=== PATIENT | female | born 1960 | race Caucasian/White ===

== ENCOUNTER 2021-01-02 14:19 | Inpatient (IN) | payer MEDICARE ==
[~2021-01-02] VITALS: Ht 162.6 cm; Wt 107.0 kg
[2021-01-02 14:52] LABS: BASOPHILS 0.1 % (0-2); EOSINOPHILS 0 % (0-7); HEMOGLOBIN 8.1 g/dL (12-16); IMMATURE GRANULOCYTES 0.5 % (0-5); LYMPHOCYTE ABS# 1.36 10x3/uL (1.18-3.74); LYMPHOCYTES 9.2 % (15-50); MCH 33.5 pg (26.0-34.0); MCHC 32.4 g/dL (31.0-37.0); MCV 103.3 fL (80.0-100.0); MEAN PLATELET VOLUME 10.2 fL (7.4-10.4); MONOCYTES 0.7 % (2-11); NEUTROPHIL ABS# 13.25 10x3/uL (1.56-6.13); NEUTROPHILS 89.5 % (40-80); PLATELET COUNT 151 10x3/uL (130-400); RBC 2.42 10x6/uL (4.00-5.40); RDW 22.3 % (11.5-14.5); WBC 14.8 10x3/uL (4.8-10.8)
[2021-01-02 15:01] LABS: APTT 28.1 SECONDS (22.8-39.4); INR 1.37 (0.85-1.17); PROTIME 15.6 SECONDS (11.6-15.0)
[2021-01-02 15:10] LABS: CALC OSMOLALITY 286 mosm/kg (275-300); CALCIUM 8.4 mg/dL (8.5-10.1); CARBON DIOXIDE 26.7 mmol/L (21.0-32.0); CHLORIDE - SERUM 103 mmol/L (98-107); GLUCOSE 106 mg/dL (74-106); POTASSIUM - SERUM 4.3 mmol/L (3.5-5.1); SODIUM 137 mmol/L (136-145); UREA NITROGEN 50 mg/dL (7-18); eGFR NON AFRICAN AMERICAN 60 mL/min (90-120)
[2021-01-02 15:16] LABS: ALBUMIN 2.3 g/dL (3.4-5.0); ALKALINE PHOSPHATASE 91 U/L (30-120); ALT (SGPT) 49 U/L (10-68); CKMB 0.4 U/L (0.0-3.6); CREATINE KINASE 15 UL (21-215); PROTEIN - SERUM 5.5 g/dL (6.4-8.2); TROPONIN-I < 0.017 ng/mL (0.000-0.060)
[2021-01-02 15:27] LABS: D-DIMER-QUANTITATIVE 2.5 ug/mLFEU (0.20-0.54)
[2021-01-02 18:15] VITALS: BP 81/57
[2021-01-02 18:45] VITALS: BP 88/45
[2021-01-02 19:15] VITALS: BP 81/47
--- NOTE | 2021-01-02 22:08 | NUR ---
RESTING. NO DISTRESS. SR UP X 3. CALL LIGHT IN REACH.
[2021-01-03] VITALS (7 sets, daily range): BP systolic 93–109; BP diastolic 42–64; Ht 162.6 cm; Wt 107.0 kg
[2021-01-03 08:20] LABS: BASOPHILS 0.1 % (0-2); EOSINOPHILS 0 % (0-7); HEMATOCRIT 21.3 % (36.0-48.0); IMMATURE GRANULOCYTES 0.1 % (0-5); LYMPHOCYTE ABS# 0.89 10x3/uL (1.18-3.74); LYMPHOCYTES 9.8 % (15-50); MCHC 32.9 g/dL (31.0-37.0); MCV 103.4 fL (80.0-100.0); RBC 2.06 10x6/uL (4.00-5.40); RDW 21.6 % (11.5-14.5)
[2021-01-03 08:38] LABS: ALBUMIN 1.9 g/dL (3.4-5.0); ALKALINE PHOSPHATASE 80 U/L (30-120); CALC OSMOLALITY 288 mosm/kg (275-300); CALCIUM 7.7 mg/dL (8.5-10.1); CARBON DIOXIDE 28.4 mmol/L (21.0-32.0); CHLORIDE - SERUM 105 mmol/L (98-107); CKMB 0.3 U/L (0.0-3.6); CREATINE KINASE 13 UL (21-215); CREATININE - SERUM 1.1 mg/dL (0.6-1.3); GLUCOSE 111 mg/dL (74-106); MAGNESIUM - SERUM 1.9 mg/dL (1.8-2.4); PLATELET COUNT 113 10x3/uL (130-400); POTASSIUM - SERUM 3.9 mmol/L (3.5-5.1); SODIUM 138 mmol/L (136-145); TROPONIN-I < 0.017 ng/mL (0.000-0.060); UREA NITROGEN 47 mg/dL (7-18); WBC 9.1 10x3/uL (4.8-10.8); eGFR NON AFRICAN AMERICAN 54 mL/min (90-120)
[2021-01-03 08:40] LABS: ALT (SGPT) 34 U/L (10-68)
--- NOTE | 2021-01-03 09:17 | NUR ---
PT ALERTA ND CONFUSED, LYING IN BED. PT WOKE WHEN ENTERED ROOM, PT COMPLAINED OF BEING HUNGRY, DIET CAHNGED PER MD ORDER, CALLED DIETARY FOR TRAY. SPOKE WITH BROTHER (ADRIANO) FOR CONSENT FOR BLOOD, OBTAINED CONSENT. CL IN REACH, SRX2.
--- NOTE | 2021-01-03 10:12 | NUR ---
PT EATING BREAFKAST WITH HELP FROM TECH. RECIEVING FIRST UNIT OF BLOOD, TOLERATING WELL.
[2021-01-03 11:21] LABS: % SATURATION 96 % (15-55); IRON 176 ug/dl (35-150); TOTAL IRON BIND CAPACITY 182 ug/dl (260-445)
[2021-01-03 11:22] LABS: UNSAT IRON BIND CAPACITY 6 ug/dl (150-375)
--- NOTE | 2021-01-03 11:26 | NUR ---
I have reviewed this patient and I concur with the Shift Assessment completed by the Licensed Practical Nurse today this shift.
[2021-01-03 11:43] LABS: FERRITIN 849 ng/mL (3-244)
--- NOTE | 2021-01-03 14:17 | NUR ---
PT RESTING COMFORTABLY WAKES EASILY TO MODERATE VERBAL STIMULI. TOLERATED 2 UNITS OF BLOOD WITHOUT NOTED DIFFICULTY. PT STATES SHE FEELS TIRED AND HER BACK HURTS SOMETIMES. NO FAMILY AT BEDSIDE. CL IN REACH, SRX2.
--- NOTE | 2021-01-03 19:40 | NUR ---
INITIAL ROUNDS COMPLETED. PT RESTING WITH EYES CLOSED. RESP EVEN AND REGULAR. SR UP X2, CALL LIGHT WITHIN REACH.
--- NOTE | 2021-01-03 22:15 | NUR ---
ASSESSMENT COMPLETED AT 2010 HRS. PT INCONTINENT OF URINE. INCONTINENT CARE DONE. PT ALERT, ORIENTED TO PERSON ONLY. LAIRD. PALPABLE PERIPHERAL PULSES. O2 4LNC. SR PER CM HR 73. LUNGS DIMINISHED IN BASES BILAT. NS TO P PORT AT 10CC/HR. IV PATENT. ICE CREAM GIVEN PER REQUEST. PT ASSISTED WITH EATING PER MICHAELLE LAMA. PT CURRENTLY RESTING WITH EYES CLOSED. RESP EVEN AND REGULAR. SR UP X2,CALL LIGHT WITHIN REACH.
--- NOTE | 2021-01-03 23:57 | NUR ---
PT AWAKE; DENIES ANY SOB OR NEEDS, SR UP X2, CALL LIGHT WITHIN REACH.
[2021-01-04] VITALS (7 sets, daily range): BP systolic 83–106; BP diastolic 46–64
--- NOTE | 2021-01-04 02:11 | NUR ---
PT RESTING WITH EYES CLOSED. RESP EVEN AND REGULAR. SR UP X3, CALL LIGHT WITHIN REACH.
--- NOTE | 2021-01-04 04:38 | NUR ---
PT INCONTINENT OF URINE. INCONTINENT CARE DONE. PT TOLERATED ACTIVITY WELL. SR UP X3, CALL LIGHT WITHIN REACH.
--- NOTE | 2021-01-04 06:32 | NUR ---
VSS THROUGHOUT NIGHT. SR PER CM. PT RESTED WELL DURING SHIFT. NEED MET; WILL CONTINUE TO MONITOR.
[2021-01-04 06:55] LABS: BASOPHILS 0.1 % (0-2); EOSINOPHILS 0.1 % (0-7); IMMATURE GRANULOCYTES 0.6 % (0-5); LYMPHOCYTE ABS# 1.07 10x3/uL (1.18-3.74); LYMPHOCYTES 15.7 % (15-50); MCH 32.4 pg (26.0-34.0); MONOCYTES 1.3 % (2-11); NEUTROPHILS 82.2 % (40-80); RDW 18.9 % (11.5-14.5)
[2021-01-04 06:56] LABS: HEMATOCRIT 28.5 % (36.0-48.0); HEMOGLOBIN 9.7 g/dL (12-16); MCV 95.3 fL (80.0-100.0); PLATELET COUNT 70 10x3/uL (130-400); RBC 2.99 10x6/uL (4.00-5.40); WBC 6.8 10x3/uL (4.8-10.8)
[2021-01-04 07:15] LABS: PLATELET ESTIMATE DECREASED
--- NOTE | 2021-01-04 10:47 | NUR ---
PT AWAKE AND ORIENTED, LYING IN BED RESTING. WOKE EASILY TO VERBAL STIMULI. PT FED BREAKFAST BY TECH. CLEANED AND DRIED PT, CHANGED LINNENS. PT HAD LARGE SEMI HARD BROWN STOOOL IN BED VEGAS. STATES THAT SHE HAS INTERNAL HEMEROIDS AND THE BMS ARE GIVNG HER PAIN. APPLIED PUREWICK WITH BRIEF OVER THE TOP TO HOLD PUREWICK IN PLACE. NO COMPLAINT SOR CONCERNS AT THIS TIME. CL IN REACH, SRX2, BED ALARM ON AND ACTIVE.
[2021-01-04 12:08] LABS: D-DIMER-QUANTITATIVE 2.59 ug/mLFEU (0.20-0.54)
--- NOTE | 2021-01-04 15:53 | NUR ---
I have reviewed this patient and I concur with the Shift Assessment completed by the Licensed Practical Nurse today this shift.
--- NOTE | 2021-01-04 21:45 | NUR ---
INITIAL ROOUONDS COMPLETED AT 1910 HRS. PT RESTING WITH EYES CLOSED. RESP EVEN AND REGULAR. ASSESSMENT COMPLETED AT 1999 HRS. VSS. SR PER CM HR 93. O2 3LNC. PT ALERT AND ORIENTED TO PERSON AND PLACE. REORIENTED TO TIME AND SITUATION. IV TO L IMPLANED PORT WITH NS AT 75CC/HR. IV PATENT.LUNGS DIMINISHED IN BASES BILAT WITH INTERMITTENT COUGH NOTED. LAIRD. PALPABLE PERIPHERAL PULSES. PT INCONTINENT OF URINE WITH PUREWICK IN USE. INCONTINET CARE DONE. PT COULD NOT ASSIST IN CARE; UNABLE TO GRAB SIDE RAILS AND PULL SELF OVER. PT REPOSITONED IN BED AND PUREWICK READJUSTED. PT CURRETNLY RESTING WITH EYES CLOSED. RESP EVEN AND REGULAR. SR UP X2, CALL LIGHT WITHIN REACH.
--- NOTE | 2021-01-05 01:31 | NUR ---
PT RESTING WITH EYES CLOSED. RESP EVEN AND REGULAR. SR UP X2, CALL LIGHT WITHIN REACH.
--- NOTE | 2021-01-05 02:35 | NUR ---
PT RESTING WITH EYES CLOSED. RESP EVEN AND REGULAR. SR UP X2,CALL LIGHT WITHIN REACH.
--- NOTE | 2021-01-05 04:29 | NUR ---
PT RESTING WITH EYES CLOSED. RESP EVEN AND REGULAR. SRU P X2, CALL LIGHT WITHIN REACH.
--- NOTE | 2021-01-05 05:40 | NUR ---
PT INCONTINENT OF URINE. INCONTINENT CARE DONE. NORCO 5/325 PO GIVENFOR C/O BACK PAIN. REPOSITIONED IN BED FOR COMFORT. SR UP X2, CALL LIGHT WITHIN REACH.
--- NOTE | 2021-01-05 06:20 | NUR ---
VSS. PT RESTED WELL DURING SHIFT. NEEDS MET; WILL CONTINUE TO MONITOR.
[2021-01-05 08:44] VITALS: BP 97/34
--- NOTE | 2021-01-05 10:24 | NUR ---
PT AWAKE AND ORIENTED, LYING IN BED. FED BREAKFAST BY NURSE. TOOK ALL MEDICATIONS WHOLE WITHOUT COMPLICATIONS NOTED OR REPORTED. PT C/O PAIN, ADMINISTERED PRN PAIN MEDIATION. CLEAN AND DRY AT THIS TIME. CL IN REACH, SRX2, BED ALARM ON AND ACTIVE.
[2021-01-05 13:36] VITALS: BP 100/61
--- NOTE | 2021-01-05 13:39 | NUR ---
CALLED [facility] AND ASKED THEM TO FAX OVER PTS CURRENT MEDICATION LIST.
[2021-01-05] MEDS ORDERED: ZYRTEC10 MG PO (14:22)
[2021-01-05] MEDS ORDERED: DEPAKOTE ER250 MG PO (14:23)
[2021-01-05] MEDS ORDERED: TOPROL XL50 MG PO (14:23)
[2021-01-05] MEDS ORDERED: SYNTHROID50 MCG PO (14:24)
[2021-01-05] MEDS ORDERED: BACLOFEN10 MG PO (14:25)
[2021-01-05] MEDS ORDERED: CHRONULAC30 ML PO (14:25)
[2021-01-05] MEDS ORDERED: MULTI-DAY VITAM1 TAB PO (14:25)
[2021-01-05] MEDS ORDERED: COLACE100 MG PO (14:26)
[2021-01-05] MEDS ORDERED: PROPRANOLOL HCL10 MG PO (14:28)
[2021-01-05] MEDS ORDERED: ULTRAM50 MG PO (14:29)
[2021-01-05] MEDS ORDERED: IBUPROFEN800 MG PO (14:30)
[2021-01-05] MEDS ORDERED: HYDROCODON-ACE1 EA10 PO (14:31)
[2021-01-05] MEDS ORDERED: PAXIL20 MG PO (14:32)
[2021-01-05 15:22] LABS: BASOPHILS 0.5 % (0-2); EOSINOPHILS 0 % (0-7); HEMATOCRIT 30.3 % (36.0-48.0); HEMOGLOBIN 10.2 g/dL (12-16); IMMATURE GRANULOCYTES 0.3 % (0-5); LYMPHOCYTE ABS# 1.09 10x3/uL (1.18-3.74); LYMPHOCYTES 18.9 % (15-50); MCH 32.4 pg (26.0-34.0); MCHC 33.7 g/dL (31.0-37.0); MCV 96.2 fL (80.0-100.0); MEAN PLATELET VOLUME 10.5 fL (7.4-10.4); MONOCYTES 1.2 % (2-11); NEUTROPHIL ABS# 4.56 10x3/uL (1.56-6.13); NEUTROPHILS 79.1 % (40-80); RBC 3.15 10x6/uL (4.00-5.40); RDW 18.3 % (11.5-14.5); WBC 5.8 10x3/uL (4.8-10.8)
[2021-01-05] MEDS ORDERED: PREPARATION H O57 GM TOPICAL (15:32)
[2021-01-05] MEDS ORDERED: FISH OIL 1,0001 CA1 PO (15:34)
[2021-01-05] MEDS ORDERED: ACETAMINOPHEN500 M1 PO (15:34)
[2021-01-05] MEDS ORDERED: VITAMIN D325 MC1 PO (15:37)
[2021-01-05 15:48] LABS: PLATELET COUNT 34 10x3/uL (130-400)
[2021-01-05 15:54] LABS: ALBUMIN 1.8 g/dL (3.4-5.0); ANION GAP 11.3 mmol/L (8-16); BILIRUBIN - TOTAL 1.33 mg/dL (0.2-1.3); CALCIUM 7.7 mg/dL (8.5-10.1); CARBON DIOXIDE 28.7 mmol/L (21.0-32.0); CREATININE - SERUM 0.9 mg/dL (0.6-1.3); PROTEIN - SERUM 4.5 g/dL (6.4-8.2)
[2021-01-05 17:12] LABS: PLATELET ESTIMATE DECREASED
--- NOTE | 2021-01-05 18:03 | NUR ---
I have reviewed this patient and I concur with the Shift Assessment completed by the Licensed Practical Nurse today this shift.
[2021-01-05 18:25] LABS: BILIRUBIN NEGATIVE (NEGATIVE); KETONE NEGATIVE (NEGATIVE); NITRITE NEGATIVE (NEGATIVE)
--- NOTE | 2021-01-05 19:00 | NUR ---
REPORT GIVEN BY DAY SHIFT NURSE.
[2021-01-05 19:54] VITALS: BP 104/62
--- NOTE | 2021-01-05 20:00 | NUR ---
PT IS HERE WITH PNEUOMONIA AND ANEMIA. SHE IS CONFUSED. IF SHE KNOWS YOU'RE IN THE ROOM SHE TALKS NONSTOP. SHE HAS A LEFT INFUSAPORT INFUSING NS AT 50 ML/HR. SHE IS ON 3L O2 VIA NASAL CANNULA WHEN SHE KEEPS IT ON. SHE IS INCONTINENT OF BLADDER AND BOWEL. SHE HAS AN EGG CRATE MATTRESS. SHE TELLS ME THAT YAAKOV IS IN THE ROOM AND HE IS LAYING ON TOP OF HER IN BED. PT TAKES HER MEDS WHOLE ONE AT A TIME. I'D BREAK THE LARGER PILLS IN HALF.SHE HAS A PURWICK THAT NEEDS TO BE CHANGED. WILL BE FOLLOWING HER ALL SHIFT.
[2021-01-05 23:50] VITALS: BP 107/68
--- NOTE | 2021-01-06 03:00 | NUR ---
PT HAS BEEN CLEANED UP TWICE TONIGHT FROM HER PERWICK LEAKING. SHE WILL NOT KEEP HER LEGS TOGETHER FOR A PURWICK TO STAY IN PLACE. SHE STATES YAAKOV IS STILL ON TOP OF HER EVEN THOUGH WE TELL HER THERE IS NO ONE HERE.
[2021-01-06 04:13] VITALS: BP 92/59
--- NOTE | 2021-01-06 08:00 | NUR ---
LAYING IN BED RESTING COMFORTABLE, ASSISTED PT WITH BREAKFAST, TOLERATED WELL, NO NEEDS VOICED AT THIS TIME, CALL LIGHT IN REACH, WILL MONITOR
[2021-01-06 08:17] VITALS: BP 101/67
[2021-01-06 09:37] LABS: BASOPHILS 0.4 % (0-2); EOSINOPHILS 0 % (0-7); HEMOGLOBIN 8.6 g/dL (12-16); IMMATURE GRANULOCYTES 0.2 % (0-5); LYMPHOCYTE ABS# 1.07 10x3/uL (1.18-3.74); LYMPHOCYTES 23.4 % (15-50); MCH 31.6 pg (26.0-34.0); MCHC 33.1 g/dL (31.0-37.0); MCV 95.6 fL (80.0-100.0); MEAN PLATELET VOLUME 11.1 fL (7.4-10.4); MONOCYTES 2.2 % (2-11); NEUTROPHIL ABS# 3.38 10x3/uL (1.56-6.13); NEUTROPHILS 73.8 % (40-80); RBC 2.72 10x6/uL (4.00-5.40); RDW 17.4 % (11.5-14.5); WBC 4.6 10x3/uL (4.8-10.8)
[2021-01-06 09:40] LABS: ALBUMIN 1.7 g/dL (3.4-5.0); ALKALINE PHOSPHATASE 98 U/L (30-120); ALT (SGPT) 33 U/L (10-68); BILIRUBIN - TOTAL 1.46 mg/dL (0.2-1.3); CALC OSMOLALITY 274 mosm/kg (275-300); CALCIUM 7.5 mg/dL (8.5-10.1); CARBON DIOXIDE 25.2 mmol/L (21.0-32.0); CHLORIDE - SERUM 103 mmol/L (98-107); CREATININE - SERUM 0.8 mg/dL (0.6-1.3); GLUCOSE 84 mg/dL (74-106); POTASSIUM - SERUM 3.3 mmol/L (3.5-5.1); PROTEIN - SERUM 4.3 g/dL (6.4-8.2); SODIUM 137 mmol/L (136-145); eGFR NON AFRICAN AMERICAN 77 mL/min (90-120)
[2021-01-06 09:41] LABS: UREA NITROGEN 19 mg/dL (7-18)
[2021-01-06 09:58] LABS: PLATELET COUNT 22 10x3/uL (130-400)
--- NOTE | 2021-01-06 10:10 | NUR ---
DR ZHU NOTIFIED OF CRITICAL PLT 22, NO NEW ORDERS
--- NOTE | 2021-01-06 12:30 | NUR ---
Nutrition Follow-up: Poor/fair PO intake reported. ST following. Noted covid testing ordered. Diet: Regular, Mech Soft & Ground Meat PO intake: 25-50% No new wt; last wt: 236# (01/03) Labs noted: K+ 3.4, Ca 7.5, Alb 1.7 Meds noted: Raegan, NS @ 100, electrolyte protocol -Encourage PO intake and honor food preferences within diet restrictions. -+Ensure with meals. -Pt may benefit from an appetite stimulant. -Need new wt. -RD will follow up within 3 days.
--- NOTE | 2021-01-06 12:35 | NUR ---
COVID TEST SENT TO THE LAB AT THIS TIME
[2021-01-06 12:54] VITALS: BP 106/65
[2021-01-06 13:15] LABS: SARS-CoV-2 ANTIGEN NEGATIVE- SARS-COV-2 (NEGATIVE)
[2021-01-06 13:53] LABS: D-DIMER-QUANTITATIVE 2.31 ug/mLFEU (0.20-0.54)
[2021-01-06 15:42] VITALS: BP 108/69
--- NOTE | 2021-01-06 17:00 | NUR ---
assisted pt with dinner tray, tolerated well, jp monitor
[2021-01-06 20:00] VITALS: BP 110/69
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
[2021-01-07 04:00] VITALS: BP 101/65
--- NOTE | 2021-01-07 07:13 | NUR ---
RECEIVE SHIFT REPORT. RESTING IN BED. AWAKE AND CONFUSED. 2L NC. STATES SHE IS STILL IN PAIN AFTER HAVING PAIN PILL, 02/02. WILL CONTINUE POC AND SAFETY PRECAUTIONS. BED ALARM ON.
[2021-01-07 08:00] VITALS: BP 106/69
[2021-01-07 10:59] LABS: ALBUMIN 1.6 g/dL (3.4-5.0); ALKALINE PHOSPHATASE 107 U/L (30-120); BILIRUBIN - TOTAL 1.46 mg/dL (0.2-1.3); CALC OSMOLALITY 276 mosm/kg (275-300); CALCIUM 7.7 mg/dL (8.5-10.1); CARBON DIOXIDE 27.8 mmol/L (21.0-32.0); CHLORIDE - SERUM 106 mmol/L (98-107); CREATININE - SERUM 0.7 mg/dL (0.6-1.3); GLUCOSE 96 mg/dL (74-106); POTASSIUM - SERUM 4.2 mmol/L (3.5-5.1); PROTEIN - SERUM 4.4 g/dL (6.4-8.2); SODIUM 137 mmol/L (136-145); UREA NITROGEN 20 mg/dL (7-18); eGFR NON AFRICAN AMERICAN 90 mL/min (90-120)
[2021-01-07 11:00] VITALS: BP 107/70
[2021-01-07 11:00] LABS: ALT (SGPT) 51 U/L (10-68)
[2021-01-07 12:23] LABS: BASOPHILS 1.1 % (0-2); EOSINOPHILS 0 % (0-7); HEMATOCRIT 26.9 % (36.0-48.0); IMMATURE GRANULOCYTES 0.3 % (0-5); LYMPHOCYTE ABS# 1.31 10x3/uL (1.18-3.74); LYMPHOCYTES 36.1 % (15-50); MCH 32.4 pg (26.0-34.0); MCHC 33.5 g/dL (31.0-37.0); MCV 96.8 fL (80.0-100.0); MONOCYTES 7.7 % (2-11); NEUTROPHIL ABS# 1.99 10x3/uL (1.56-6.13); NEUTROPHILS 54.8 % (40-80); RBC 2.78 10x6/uL (4.00-5.40); RDW 17.9 % (11.5-14.5); WBC 3.6 10x3/uL (4.8-10.8)
[2021-01-07 12:29] LABS: PLATELET COUNT 14 10x3/uL (130-400)
[2021-01-07 12:30] LABS: D-DIMER-QUANTITATIVE 2.45 ug/mLFEU (0.20-0.54)
[2021-01-07 13:27] LABS: APTT 37.9 SECONDS (22.8-39.4); INR 1.46 (0.85-1.17); PROTIME 16.4 SECONDS (11.6-15.0)
[2021-01-07 14:11] LABS: ANISOCYTOSIS OCC; CRENATED CELLS OCC; PLATELET ESTIMATE DECREASED; ROULEAUX OCC
[2021-01-07 14:12] LABS: SMUDGE CELLS OCC
--- NOTE | 2021-01-07 14:56 | NUR ---
PRE PLATELET VS 1452 178,73; 102, 18, 98.1. INFUSION STARTED AT 1456. WILL REMAIN AT BEDSIDE.
[2021-01-07 15:00] VITALS: BP 109/73
--- NOTE | 2021-01-07 18:29 | NUR ---
PATIENT WET. HAD PUREWICK IN PLACE AND NOTICED BLOOD IN SUCTION CONTAINER, CHANGED PADS AND TOOK PUREWICK OFF. DID NOT FIND ANY ACTIVE BLEEDING. NEW PADS UNDER PATIENT AND NO PUREWICK TO BE AWARE OF HOW MUCH BLOOD. WILL NOTIFY
[2021-01-07 21:08] VITALS: BP 104/46
--- NOTE | 2021-01-08 06:05 | NUR ---
PT SLEPT THROUGHOUT MOST OF THE NIGHT. WITHOUT THE USE OF AMBIEN. C/O BEING COLD CONSTANTLY, HEAT TURNED UP & WARM BLANKETS ON PT. ASSISTED WITH HS & AM SNACKS TOOK PO INTAKE WELL. WHILE DRAWING AM LABS SHE REPEATS "I'M SO TIRED" OVER & OVER. STATES THAT SHE WOULD LIKE TO SEE HER BROTHER & SISTER IN LAW. SPOKE WITH RAYNA DAI & THEY PLAN ON STAYING IN [place] THIS WEEKEND SO THAT THEY CAN VISIT WITH VALERIE. PENDING COVID RESULTS. URINE OUTPUT FOR THE HS 175ML & X2 INCONTINENT EPISODES. NO BM.
--- NOTE | 2021-01-08 06:11 | NUR ---
1929-DR AUDRA DELATORRE W/ PT. NEW ORDER RECEIVED TO PLACE LOPEZ CATHETER. 16FR PLACED USING STERILE TECHNIQUE. PT TOLERATED IT OK. HAD <30ML DARK URINE RETURN. STAT LOCK TO RIGHT INNER THIGH & BAG PLACED BELOW BLADDER. WILL CONTINUE TO MONITOR. PAIN MED GIVEN TO PT WHEN REQUESTED NEEDED.
[2021-01-08 06:47] LABS: ALBUMIN 1.7 g/dL (3.4-5.0); ALKALINE PHOSPHATASE 119 U/L (30-120); ALT (SGPT) 48 U/L (10-68); BILIRUBIN - TOTAL 1.09 mg/dL (0.2-1.3); CALC OSMOLALITY 281 mosm/kg (275-300); CALCIUM 7.6 mg/dL (8.5-10.1); CARBON DIOXIDE 25.7 mmol/L (21.0-32.0); CHLORIDE - SERUM 108 mmol/L (98-107); CREATININE - SERUM 0.6 mg/dL (0.6-1.3); GLUCOSE 119 mg/dL (74-106); MAGNESIUM - SERUM 1.2 mg/dL (1.8-2.4); PHOSPHOROUS 2.6 mg/dL (2.5-4.9); POTASSIUM - SERUM 3.6 mmol/L (3.5-5.1); PROTEIN - SERUM 4.3 g/dL (6.4-8.2); SODIUM 139 mmol/L (136-145); UREA NITROGEN 21 mg/dL (7-18); eGFR NON AFRICAN AMERICAN > 90 mL/min (90-120)
[2021-01-08 08:01] LABS: BASOPHILS 0.3 % (0-2); EOSINOPHILS 0 % (0-7); HEMATOCRIT 24.1 % (36.0-48.0); IMMATURE GRANULOCYTES 0.3 % (0-5); LYMPHOCYTE ABS# 1.03 10x3/uL (1.18-3.74); LYMPHOCYTES 35.5 % (15-50); MCHC 33.2 g/dL (31.0-37.0); MCV 96.4 fL (80.0-100.0); MEAN PLATELET VOLUME 10.7 fL (7.4-10.4); MONOCYTES 9.3 % (2-11); NEUTROPHIL ABS# 1.58 10x3/uL (1.56-6.13); NEUTROPHILS 54.6 % (40-80); PLATELET COUNT 71 10x3/uL (130-400); RDW 17.9 % (11.5-14.5); WBC 2.9 10x3/uL (4.8-10.8)
[2021-01-08 09:36] VITALS: BP 123/71
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
--- NOTE | 2021-01-08 14:52 | NUR ---
I have reviewed this patient and I concur with the Shift Assessment completed by the Licensed Practical Nurse today this shift.
[2021-01-08 17:35] VITALS: BP 115/93
[2021-01-08 19:20] VITALS: BP 120/72
[2021-01-08 23:55] VITALS: BP 116/73
--- NOTE | 2021-01-09 00:18 | NUR ---
1999-- PT BROTHER GLENN HERE TO VISIT WITH HER. HE VOICED CONCERNS REGARDING HER CHEMO MAKING HER SICK LIKE THIS & HER QUALITY OF LIFE. STATES THAT HE HAS A LOT TO THINK ABOUT & PRAYS THAT GOD GIVES HIM THE ANSWERS. PT CONTINUES TO BELIEVE THAT THERE IS A MAN ON TOP OF HER WHILE SHE IS IN BED. REASSURED MULTIPLE TIMES THAT THERE IS NOONE ELSE IN THE ROOM. 0021-- WAS GIVEN A PAIN PILL & AMBIEN EARLIER TO HELP HER PAIN & ALLOW HER TO REST. PT REMAINS AWAKE AT THIS TIME. PO FLUIDS ENCOURAGED EACH TIME STAFF IS IN ROOM
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
--- NOTE | 2021-01-09 03:11 | NUR ---
0240-- GEODON 10MG IM TO RIGHT DELTOID D/T HALLUCINATIONS/DELUSIONS
--- NOTE | 2021-01-09 04:10 | NUR ---
MAG REPLACEMENT DONE 4GRAMS IV GIVEN OVER 4 HOURS. TOLERATED WELL
[2021-01-09 06:31] LABS: ALBUMIN 1.6 g/dL (3.4-5.0); ALKALINE PHOSPHATASE 133 U/L (30-120); ALT (SGPT) 40 U/L (10-68); BILIRUBIN - TOTAL 0.98 mg/dL (0.2-1.3); CALC OSMOLALITY 276 mosm/kg (275-300); CALCIUM 7.5 mg/dL (8.5-10.1); CARBON DIOXIDE 25.1 mmol/L (21.0-32.0); CHLORIDE - SERUM 105 mmol/L (98-107); CREATININE - SERUM 0.7 mg/dL (0.6-1.3); GLUCOSE 115 mg/dL (74-106); POTASSIUM - SERUM 3.3 mmol/L (3.5-5.1); PROTEIN - SERUM 4.1 g/dL (6.4-8.2); SODIUM 137 mmol/L (136-145); UREA NITROGEN 19 mg/dL (7-18); eGFR NON AFRICAN AMERICAN 90 mL/min (90-120)
[2021-01-09 06:55] LABS: BASOPHILS 0.5 % (0-2); EOSINOPHILS 0 % (0-7); HEMATOCRIT 23.2 % (36.0-48.0); HEMOGLOBIN 7.8 g/dL (12-16); IMMATURE GRANULOCYTES 0.5 % (0-5); LYMPHOCYTE ABS# 1.21 10x3/uL (1.18-3.74); LYMPHOCYTES 32.5 % (15-50); MCH 32.1 pg (26.0-34.0); MCHC 33.6 g/dL (31.0-37.0); MCV 95.5 fL (80.0-100.0); MEAN PLATELET VOLUME 11.1 fL (7.4-10.4); MONOCYTES 12.1 % (2-11); NEUTROPHIL ABS# 2.02 10x3/uL (1.56-6.13); NEUTROPHILS 54.4 % (40-80); RBC 2.43 10x6/uL (4.00-5.40); RDW 17.8 % (11.5-14.5)
[2021-01-09 07:01] LABS: PLATELET COUNT 55 10x3/uL (130-400); WBC 3.7 10x3/uL (4.8-10.8)
[2021-01-09 08:37] VITALS: BP 99/59
[2021-01-09 09:28] LABS: PLATELET ESTIMATE DECREASED
[2021-01-09 12:25] VITALS: BP 96/53
--- NOTE | 2021-01-09 13:28 | NUR ---
Nutrition Reassessment/Follow-up: Pt confused. Per nursing, pt will typically eat if someone feeds her; ate 75%-0%-30% of meals yesterday, as well as an Ensure. ST following. Diet: Regular, Mech Soft with Ground Meat, Ensure TID No new wt; last wt: 236# (01/03) Labs noted: K+ 3.3, Ca 7.5, Alb 1.6 Meds noted: Protonix, Florajen, NS @ 100, electrolyte protocol -Nutrition needs unchanged from initial assessment; no new wt available. -Encourage PO intake and honor food preferences within diet restrictions; needs feeding assistance. -Pt may benefit from an appetite stimulant if medically feasible. -Need new wt. -RD follow-up: 01/13
--- NOTE | 2021-01-09 13:36 | NUR ---
I have reviewed this patient and I concur with the Shift Assessment completed by the Licensed Practical Nurse today this shift.
[2021-01-09 15:42] VITALS: BP 106/61
--- NOTE | 2021-01-09 18:13 | NUR ---
PATIENT ARRIVED DIRECT ADMIT, NO S/S OF DISTRESS, RESP EVEN AND NON LABORED, NO FURTHER NEEDS AT THIS TIME, CLIR, BLP
[2021-01-09 20:54] VITALS: BP 116/56
[2021-01-10 01:56] VITALS: BP 106/63
[2021-01-10 06:43] VITALS: BP 98/66
[2021-01-10 07:52] LABS: BASOPHILS 0.2 % (0-2); EOSINOPHILS 0 % (0-7); HEMATOCRIT 23.2 % (36.0-48.0); HEMOGLOBIN 7.8 g/dL (12-16); IMMATURE GRANULOCYTES 0.6 % (0-5); LYMPHOCYTE ABS# 1.31 10x3/uL (1.18-3.74); LYMPHOCYTES 27.9 % (15-50); MCH 32.4 pg (26.0-34.0); MCHC 33.6 g/dL (31.0-37.0); MCV 96.3 fL (80.0-100.0); MONOCYTES 18.5 % (2-11); NEUTROPHIL ABS# 2.48 10x3/uL (1.56-6.13); NEUTROPHILS 52.8 % (40-80); PLATELET COUNT 59 10x3/uL (130-400); RBC 2.41 10x6/uL (4.00-5.40); RDW 18.2 % (11.5-14.5)
[2021-01-10 07:53] LABS: WBC 4.7 10x3/uL (4.8-10.8)
[2021-01-10 08:04] LABS: ALBUMIN 1.6 g/dL (3.4-5.0); ALKALINE PHOSPHATASE 124 U/L (30-120); ALT (SGPT) 32 U/L (10-68); BILIRUBIN - TOTAL 1.28 mg/dL (0.2-1.3); CALC OSMOLALITY 277 mosm/kg (275-300); CALCIUM 7.3 mg/dL (8.5-10.1); CARBON DIOXIDE 24.6 mmol/L (21.0-32.0); CHLORIDE - SERUM 107 mmol/L (98-107); CREATININE - SERUM 0.7 mg/dL (0.6-1.3); GLUCOSE 91 mg/dL (74-106); POTASSIUM - SERUM 3.7 mmol/L (3.5-5.1); SODIUM 138 mmol/L (136-145); UREA NITROGEN 18 mg/dL (7-18); eGFR NON AFRICAN AMERICAN 90 mL/min (90-120)
[2021-01-10 09:00] VITALS: BP 83/36
--- NOTE | 2021-01-10 11:20 | NUR ---
PATIENT LYING SEMI FOWLERS EYES RESTING, RESP EVEN AND NON LABORED, NO S/S OF DISTRESS, PATIENT ALERT TO VERBAL STIMULI, MEDICATIONS ADMINISTERED WITH NO COMPLICATIONS, CLIR, BLP
[2021-01-10 12:35] VITALS: BP 109/55
[2021-01-10 16:58] VITALS: BP 117/83
[2021-01-10 21:38] VITALS: BP 98/60
[2021-01-11 03:53] VITALS: BP 94/50
[2021-01-11 06:44] LABS: ALBUMIN 1.5 g/dL (3.4-5.0); ALKALINE PHOSPHATASE 115 U/L (30-120); ALT (SGPT) 27 U/L (10-68); BILIRUBIN - TOTAL 1.11 mg/dL (0.2-1.3); CALC OSMOLALITY 279 mosm/kg (275-300); CALCIUM 7.3 mg/dL (8.5-10.1); CARBON DIOXIDE 24.6 mmol/L (21.0-32.0); CHLORIDE - SERUM 110 mmol/L (98-107); CREATININE - SERUM 0.8 mg/dL (0.6-1.3); GLUCOSE 84 mg/dL (74-106); PROTEIN - SERUM 4.2 g/dL (6.4-8.2); SODIUM 140 mmol/L (136-145); UREA NITROGEN 19 mg/dL (7-18); eGFR NON AFRICAN AMERICAN 77 mL/min (90-120)
[2021-01-11 07:17] LABS: BASOPHILS 0.3 % (0-2); EOSINOPHILS 0 % (0-7); HEMOGLOBIN 7.7 g/dL (12-16); IMMATURE GRANULOCYTES 0.9 % (0-5); LYMPHOCYTE ABS# 1.78 10x3/uL (1.18-3.74); MCH 32.5 pg (26.0-34.0); MCHC 33.5 g/dL (31.0-37.0); MEAN PLATELET VOLUME 11.6 fL (7.4-10.4); MONOCYTES 18.1 % (2-11); NEUTROPHIL ABS# 2.86 10x3/uL (1.56-6.13); NEUTROPHILS 49.7 % (40-80); RBC 2.37 10x6/uL (4.00-5.40); RDW 18.7 % (11.5-14.5); WBC 5.8 10x3/uL (4.8-10.8)
[2021-01-11 07:18] LABS: PLATELET COUNT 77 10x3/uL (130-400)
[2021-01-11 09:49] VITALS: BP 96/56
[2021-01-11 13:12] VITALS: BP 94/45
[2021-01-11 17:10] VITALS: BP 110/47
[2021-01-11 20:05] VITALS: BP 100/62
[2021-01-12 03:46] VITALS: BP 108/62
[2021-01-12 06:32] LABS: BASOPHILS 0.4 % (0-2); EOSINOPHILS 0.2 % (0-7); HEMATOCRIT 23.9 % (36.0-48.0); IMMATURE GRANULOCYTES 0.9 % (0-5); LYMPHOCYTE ABS# 1.33 10x3/uL (1.18-3.74); MCH 32.9 pg (26.0-34.0); MCHC 33.5 g/dL (31.0-37.0); MCV 98.4 fL (80.0-100.0); MEAN PLATELET VOLUME 11.1 fL (7.4-10.4); MONOCYTES 18.3 % (2-11); NEUTROPHIL ABS# 2.35 10x3/uL (1.56-6.13); NEUTROPHILS 51.2 % (40-80); PLATELET COUNT 95 10x3/uL (130-400); RBC 2.43 10x6/uL (4.00-5.40); RDW 18.9 % (11.5-14.5); WBC 4.6 10x3/uL (4.8-10.8)
[2021-01-12 06:43] LABS: ALBUMIN 1.4 g/dL (3.4-5.0); ALKALINE PHOSPHATASE 110 U/L (30-120); ALT (SGPT) 27 U/L (10-68); BILIRUBIN - TOTAL 1.17 mg/dL (0.2-1.3); CALC OSMOLALITY 280 mosm/kg (275-300); CALCIUM 7.3 mg/dL (8.5-10.1); CHLORIDE - SERUM 109 mmol/L (98-107); CREATININE - SERUM 0.6 mg/dL (0.6-1.3); GLUCOSE 79 mg/dL (74-106); POTASSIUM - SERUM 3.9 mmol/L (3.5-5.1); PROTEIN - SERUM 4.1 g/dL (6.4-8.2); SODIUM 140 mmol/L (136-145); UREA NITROGEN 20 mg/dL (7-18); eGFR NON AFRICAN AMERICAN > 90 mL/min (90-120)
[2021-01-12 08:29] VITALS: BP 103/68
[2021-01-12 10:51] LABS: PLATELET ESTIMATE DECREASED
[2021-01-12 10:52] LABS: ANISOCYTOSIS OCC
--- NOTE | 2021-01-12 11:30 | NUR ---
PUBIC AREA SWOLLEN AND PATIENT STATES PAIN, BLADDER SCAN SHOWN 698 IN BLADDER, NOTHING IN LOPEZ, LOPEZ CHANGED OUT AND SCANT RETURN OF URINE.
[2021-01-12 12:41] VITALS: BP 103/73
[2021-01-12 17:35] VITALS: BP 127/54
--- NOTE | 2021-01-12 18:20 | NUR ---
16 PASHTO LOPEZ PLACED. PT EXLAMING THAT SHE HURTS. LABIA'S OF VAGINA ARE SWOLLEN WITH WHAT APPEARS TO BE FLUID. SCANT AMOUNT OF CLOTTY REDDISH URINE OUTPUT FROM LOPEZ. SPECIMEN SENT TO LAB.
--- NOTE | 2021-01-12 19:33 | NUR ---
PT LOWER QUADRENT OF ABDOMEN SWOLLEN. BLADDER SCAN STATES 125ML OF URINE. DR ZHU NOTIFIED. LOPEZ, UA, AND SCAN ORDERED. WILL CONTINUE TO MONITOR.
[2021-01-12 20:00] VITALS: BP 131/59
[2021-01-12 21:21] LABS: KETONE SMALL mg/dL (NEGATIVE); NITRITE NEGATIVE (NEGATIVE)
[2021-01-12 21:22] LABS: BILIRUBIN NEGATIVE (NEGATIVE); UROBILINOGEN NORMAL mg/dL (< 2)
[2021-01-12 21:27] LABS: SQUAMOUS EPITHELIAL 0-5 HPF (0-4); WHITE CELLS - URINE 25-50 HPF (0-4)
[2021-01-12 21:28] LABS: BACTERIA FEW HPF (NONE SEEN)
--- NOTE | 2021-01-12 21:40 | NUR ---
PRN PAIN MEDICATION ORDERED FOR PAIN 6-10 PAIN.
--- NOTE | 2021-01-13 02:20 | NUR ---
PT STATES, "IM HURTING." PRN PAIN MEDICATION GIVEN. PT VSS. 02-100% ON 5L. CONTINUOUS PULSE OX SCANT URINE OUTPUT IN LOPEZ. PT ALERT OF PERSON AND AWARE SHE IS IN HOSPITAL. PT COLOR YELLOWISH. ABDOMEN DISTENTED AND FIRM. BED LOW CALL LIGHT WITHIN REACH. WILL CONTINUE TO MONITOR.
--- NOTE | 2021-01-13 02:50 | NUR ---
PT RESTING COMFORTABLY WITH EYES CLOSED. RR E/U. VSS. NO S/S OF DISTRESS AT THIS TIME. NO PAIN INDICATED. WILL CONTINUE TO MONITOR.
[2021-01-13 08:19] VITALS: BP 106/68
--- NOTE | 2021-01-13 14:21 | NUR ---
Nutrition Follow-up: Fair PO intake reported yesterday. Zofran received this afternoon. Nursing reports firm, distended abd with active BS; last BM reported 01/11. ST following; liquids downgraded to nectar thick. Noted family having discussions about ongoing care. Diet: Regular, Mech Soft with [place] Thick Liquids, Ensure TID PO intake: 50% @ breakfast & lunch yesterday No new wt; last wt: 236# (01/03) Labs noted: Ca 7.3, Alb 1.4 Meds noted: Miralax, Lactulose, Protonix, Florajen, Zofran, NS @ 125, electrolyte protocol -Encourage PO intake and honor food preferences within diet restrictions. -Need new wt. -RD will follow up within 3 days.
[2021-01-13 15:32] VITALS: BP 153/51
--- NOTE | 2021-01-13 16:00 | NUR ---
LAYING IN BED YELLING OUT, "GET HIM OFF ME, HE'S FAT!! GET HIM OFF, I'M GONNA BE SICK." INFORM NO ONE IN ROOM. INITIATE PAIN MANAGEMENT ORDERED. SPOKE WITH GLENN, PATIENT BROTHER WHOM WISHES FOR PATIENT TO BE DNR. NOTIFY . HOSPICE CONSULTED PER GLENN. CONTINUE PLAN OF CARE AND SAFETY PRECAUTIONS.
--- NOTE | 2021-01-13 16:06 | MORECARE ---
CASE MANAGEMENT DISCHARGE SUMMARY PATIENT: VALERIE LEVI UNIT: [id number] ADM DATE: 01/02/21 AGE: 60 : 60 SEX: F ROOM/BED: D.2133 AUTHOR: PILY,DOC PHYSICIAN: REFERRING PHYSICIAN: MYRIAM ZHU MD DATE OF SERVICE: 01/13/21 Case Management Discharge Planning Summary COMMENTS ENTERED DATE: 01/13/21 15:57 CT COMMENT TYPE: Discharge Planning REVIEWER: Paulette Patterson CM was called to the flores by patient's brother, Jericho Chatman. He states that they would like a hospice consult. I went over inpatient vs hospice at the facility and he would like inpatient hospice if she meets criteria. JOSE L for [facility] signed. He would like [facility] to call him at [phone] tomorrow morning between [phone]. I called Roosevelt with [facility] and spoke with him and referral faxed. CM will continue to follow and assist with discharge planning/needs. DCP REVIEW SUMMARY ANTICIPATED D/C DATE: EXPECTED LOS : CASE STATUS: DCP Initiated INITIAL REVIEW: 01/13/2021 INITIAL REVIEWER: Paulette Patterson FINAL DISCHARGE DISPOSITION: : FINAL REVIEWER: FINAL REVIEW DATE: DCP Focus Questions & Answers QUESTION: ANSWER : PATIENT: VALERIE LEVI ENCOUNTER: [id number] MEDICAL RECORD#: [id number] ADMISSION DATE: 01/02/2021 DISCHARGE DATE: ATTENDING MD: MYRIAM CHOI : AGE: 60 MARITAL STATUS: S DC PLAN ID: [id number] FACILITY: [facility] PRINTED ON: 01/13/21 16:05 CT All edits/amendments must be made on the electronic document DICTATION DATE: 01/13/21 160 [employer] SERVICE MANAGER: YURI 01/13/21 160 RPT#: [id number] DC DATE: STATUS: ADM IN [facility] [address] [place] [address] END OF REPORT
--- NOTE | 2021-01-13 19:30 | NUR ---
PT IN BED, CONFUSED AND AWAKE, PT RESP EVEN AND UNLABORED, NO DISTRESS NOTED, CL IN REACH, SR UP X 2.
[2021-01-13 20:00] VITALS: BP 120/71
--- NOTE | 2021-01-13 21:32 | NUR ---
PT APPROVED FOR [facility] PER DR. ZHU.
[2021-01-14] VITALS: BP 115/72
[2021-01-14 04:00] VITALS: BP 101/59
--- NOTE | 2021-01-14 05:48 | NUR ---
I have reviewed this patient and I concur with the Shift Assessment completed by the Licensed Practical Nurse today this shift.
--- NOTE | 2021-01-14 05:48 | NUR ---
I have reviewed this patient and I concur with the Shift Assessment completed by the Licensed Practical Nurse today this shift.
--- NOTE | 2021-01-14 07:00 | NUR ---
HEART RATE 133+ NO UPDRAFT GIVEN
--- NOTE | 2021-01-14 07:30 | NUR ---
Lying in bed with eyes closed, respirations slow/deep/even, rouses easily with verbal stimulus, T/R freq for C/C, FC patent and draining elma colored urine to CDB in ample amt, cath care provided with daily bath and PRN, incont of bowel with use of incont pads, pericare provided with daily bath and prn, no s/s that would indicate pain such as grimacing/groaning/grunting, call light/phone/water within reach, no s/s of acute distress observed.
[2021-01-14 08:17] VITALS: BP 106/61
[2021-01-14 11:40] VITALS: BP 84/56
[2021-01-14 16:14] VITALS: BP 99/56
--- NOTE | 2021-01-14 18:12 | NUR ---
CALLED REPORT TO MAURICE Nix at [facility] ([place], [place])
--- NOTE | 2021-01-14 18:20 | NUR ---
Called for ambulance transport to [facility]
--- NOTE | 2021-01-14 18:28 | NUR ---
Called brother Dashawn Chatman and notified of transfer back to [facility].
--- NOTE | 2021-01-14 18:30 | NUR ---
Discharge cancelled by Hospice, notified NH/ambulance/family.
--- NOTE | 2021-01-14 18:49 | NUR ---
SAMINA called [facility] spoke with Elliot and she stated that they will not beable to admit patient until am. She also stated that facility will not accept her back because they will not have the liquid morphine. Elliot called Dr. Garibay and he stated to hold discharge until am. Janna nurse called and notified patient's family and SAMINA called [facility] and cancelled transport. SAMINA called three times and didn't answer at [place] to insure that they are aware that the patient will discharge in am.
[2021-01-14 20:00] VITALS: BP 106/57
--- NOTE | 2021-01-14 20:30 | NUR ---
PT IN BED, EYES CLOSED, PT UNRESPONSIVE, RESP ARE EVEN AND SHALLOW AT THIS TIME, DR. ZHU AT BEDSIDE.
[2021-01-15] VITALS: BP 84/46
--- NOTE | 2021-01-15 02:11 | NUR ---
PT IN BED, EYES CLOSED, RESP SHALLOW AND EVEN AT THIS TIME, PT IS UNRESPONSIVE, HOSPICE TOMORROW, FAMILY NOTIFED, CL IN REACH, SR UP X 2.
--- NOTE | 2021-01-15 03:41 | NUR ---
I have reviewed this patient and I concur with the Shift Assessment completed by the Licensed Practical Nurse today this shift.
[2021-01-15 04:00] VITALS: BP 93/58
[2021-01-15 07:58] VITALS: BP 94/45
--- NOTE | 2021-01-15 10:59 | MORECARE ---
CASE MANAGEMENT DISCHARGE SUMMARY PATIENT: VALERIE LEVI UNIT: [id number] ADM DATE: 01/02/21 AGE: 60 : 60 SEX: F ROOM/BED: D.2133 AUTHOR: PILY,DOC PHYSICIAN: REFERRING PHYSICIAN: MYRIAM ZHU MD DATE OF SERVICE: 01/15/21 Case Management Discharge Planning Summary COMMENTS ENTERED DATE: 01/15/21 10:52 CT COMMENT TYPE: Discharge Planning REVIEWER: Madisyn Kvein Patient re-evaluated for Inpatient Hospice and she is appropriate. Once paperwork is complete patient will be discharged to [facility]. CM will continue to follow and assist as needed. ENTERED DATE: 01/13/21 15:57 CT COMMENT TYPE: Discharge Planning REVIEWER: Paulette Patterson CM was called to the flores by patient's brother, Jericho Chatman. He states that they would like a hospice consult. I went over inpatient vs hospice at the facility and he would like inpatient hospice if she meets criteria. JOSE L for [facility] signed. He would like [facility] to call him at [phone] tomorrow morning between [phone]. I called Roosevelt with [facility] and spoke with him and referral faxed. CM will continue to follow and assist with discharge planning/needs. DCP REVIEW SUMMARY ANTICIPATED D/C DATE: EXPECTED LOS : CASE STATUS: DCP Initiated INITIAL REVIEW: 01/13/2021 INITIAL REVIEWER: Paulette Patterson FINAL DISCHARGE DISPOSITION: : FINAL REVIEWER: FINAL REVIEW DATE: DCP Focus Questions & Answers QUESTION: ANSWER : PATIENT: VALERIE LEVI ENCOUNTER: [id number] MEDICAL RECORD#: [id number] ADMISSION DATE: 01/02/2021 DISCHARGE DATE: ATTENDING MD: MYRIAM CHOI : AGE: 60 MARITAL STATUS: S DC PLAN ID: [id number] FACILITY: [facility] PRINTED ON: 01/15/21 10:59 CT All edits/amendments must be made on the electronic document DICTATION DATE: 01/15/21 105 PROJECT LEAD: YURI 01/15/21 105 RPT#: [id number] DC DATE: STATUS: ADM IN [facility] [address] [place] [address] END OF REPORT
--- NOTE | 2021-01-15 16:44 | MORECARE ---
CASE MANAGEMENT DISCHARGE SUMMARY PATIENT: VALERIE LEVI UNIT: [id number] ADM DATE: 01/02/21 AGE: 60 : 60 SEX: F ROOM/BED: D.2133 AUTHOR: PILY,DOC PHYSICIAN: REFERRING PHYSICIAN: MYRIAM ZHU MD DATE OF SERVICE: 01/15/21 Case Management Discharge Planning Summary COMMENTS ENTERED DATE: 01/15/21 10:52 CT COMMENT TYPE: Discharge Planning REVIEWER: Madisyn Kevin Patient re-evaluated for Inpatient Hospice and she is appropriate. Once paperwork is complete patient will be discharged to [facility]. CM will continue to follow and assist as needed. ENTERED DATE: 01/13/21 15:57 CT COMMENT TYPE: Discharge Planning REVIEWER: Paulette Patterson CM was called to the flores by patient's brother, Jericho Chatman. He states that they would like a hospice consult. I went over inpatient vs hospice at the facility and he would like inpatient hospice if she meets criteria. JOSE L for [facility] signed. He would like [facility] to call him at [phone] tomorrow morning between [phone]. I called Roosevelt with [facility] and spoke with him and referral faxed. CM will continue to follow and assist with discharge planning/needs. DCP REVIEW SUMMARY ANTICIPATED D/C DATE: EXPECTED LOS : CASE STATUS: DCP Initiated INITIAL REVIEW: 01/13/2021 INITIAL REVIEWER: Paulette Patterson FINAL DISCHARGE DISPOSITION: : FINAL REVIEWER: FINAL REVIEW DATE: DCP Focus Questions & Answers QUESTION: ANSWER : PATIENT: VALERIE LEVI ENCOUNTER: [id number] MEDICAL RECORD#: [id number] ADMISSION DATE: 01/02/2021 DISCHARGE DATE: 01/15/2021 ATTENDING MD: MYRIAM CHOI : AGE: 60 MARITAL STATUS: S DC PLAN ID: [id number] FACILITY: [facility] PRINTED ON: 01/15/21 16:44 CT All edits/amendments must be made on the electronic document DICTATION DATE: 01/15/211643 [address] DEPUTY CLERK: YURI 01/15/211643 RPT#: [id number] DC DATE:01/15/21 STATUS: DIS IN [facility] [address] [place] [address] END OF REPORT
--- NOTE | 2021-01-15 19:55 | MORECARE ---
CASE MANAGEMENT DISCHARGE SUMMARY PATIENT: VALERIE LEVI UNIT: [id number] ADM DATE: 01/02/21 AGE: 60 : 60 SEX: F ROOM/BED: D.2133 AUTHOR: PILY,DOC PHYSICIAN: REFERRING PHYSICIAN: MYRAIM ZHU MD DATE OF SERVICE: 01/15/21 Case Management Discharge Planning Summary COMMENTS ENTERED DATE: 01/15/21 10:52 CT COMMENT TYPE: Discharge Planning REVIEWER: Madisyn Kevin Patient re-evaluated for Inpatient Hospice and she is appropriate. Once paperwork is complete patient will be discharged to [facility]. CM will continue to follow and assist as needed. ENTERED DATE: 01/13/21 15:57 CT COMMENT TYPE: Discharge Planning REVIEWER: Paulette Patterson CM was called to the flores by patient's brother, Jericho Chatman. He states that they would like a hospice consult. I went over inpatient vs hospice at the facility and he would like inpatient hospice if she meets criteria. JOSE L for [facility] signed. He would like [facility] to call him at [phone] tomorrow morning between [phone]. I called Roosevelt with [facility] and spoke with him and referral faxed. CM will continue to follow and assist with discharge planning/needs. DCP REVIEW SUMMARY ANTICIPATED D/C DATE: EXPECTED LOS : CASE STATUS: DCP Initiated INITIAL REVIEW: 01/13/2021 INITIAL REVIEWER: Paulette Patterson FINAL DISCHARGE DISPOSITION: 51 : [facility] FINAL REVIEWER: Madisyn Kevin FINAL REVIEW DATE: [facility] Focus Questions & Answers QUESTION: ANSWER : PATIENT: VALERIE LEVI ENCOUNTER: [id number] MEDICAL RECORD#: [id number] ADMISSION DATE: 01/02/2021 DISCHARGE DATE: 01/15/2021 ATTENDING MD: MYRIAM CHOI : AGE: 60 MARITAL STATUS: S DC PLAN ID: [id number] FACILITY: [facility] PRINTED ON: 01/15/21 19:55 CT All edits/amendments must be made on the electronic document DICTATION DATE: 01/15/211954 AGRI BUSINESS AGENT: YURI 01/15/211954 RPT#: [id number] DC DATE:01/15/21 STATUS: DIS IN [facility] [address] [place] [address] END OF REPORT
== END 2021-01-15 16:38 | disposition hospice, inpatient (51) | DRG 193 ==
LOC: D.ER 14:19 → D.M2 17:55
PROVIDERS: Emergency Medicine; Family Medicine; ADMIT Legal Medicine; ATTEND Legal Medicine
DX: J18.9 Pneumonia, unspecified organism (principal); D65 Disseminated intravascular coagulation [defibrination syndrome]; C34.91 Malignant neoplasm of unspecified part of right bronchus or lung; J96.11 Chronic respiratory failure with hypoxia; D64.9 Anemia, unspecified; E87.6 Hypokalemia; E80.6 Other disorders of bilirubin metabolism; Z20.822 Contact with and (suspected) exposure to COVID-19; E83.42 Hypomagnesemia; Z66 Do not resuscitate

== ENCOUNTER 2021-01-15 16:51 | Inpatient (IN) | payer OTHER ==
[~2021-01-15] VITALS: Ht 162.6 cm; Wt 45.5 kg
[~2021-01-15 16:51] MED LIST: ACETAMINOPHEN500 M1 PO; BACLOFEN10 MG PO; CHRONULAC30 ML PO; COLACE100 MG PO; DEPAKOTE ER250 MG PO; FISH OIL 1,0001 CA1 PO; HYDROCODON-ACE1 EA10 PO; IBUPROFEN800 MG PO; MULTI-DAY VITAM1 TAB PO; PAXIL20 MG PO; PREPARATION H O57 GM TOPICAL; PROPRANOLOL HCL10 MG PO; SYNTHROID50 MCG PO; TOPROL XL50 MG PO; ULTRAM50 MG PO; VITAMIN D325 MC1 PO; ZYRTEC10 MG PO
--- NOTE | 2021-01-15 17:00 | NUR ---
Transferred to inpatient hospice per Dr. Garibay, currently lying in bed with eyes closed, respirations slow/deep/even, rouses easily with verbal stimulus, FC patent and draining elma colored urine to CDB in small amt, cath care provided with daily bath and prn, incont of bowel with use of incont pads daily, pericare provided with daily bath and prn, denies pain/other discomfort at this time, has Morphine ASSOCIATE PROFESSOR OF SOCIOLOGY at this time, call light/phone/water within reach, no s/s of acute distress observed.
[2021-01-15 18:23] VITALS: Ht 162.6 cm; Wt 45.5 kg
--- NOTE | 2021-01-15 19:30 | NUR ---
PT IN BED, EYES CLOSED, RESP SHALLOW AND EVEN, NO DISTRESS NOTED AT THIS TIME. CL IN REACH, SR UP X 2.
[2021-01-15 20:26] VITALS: BP 100/62
--- NOTE | 2021-01-16 04:41 | NUR ---
I have reviewed this patient and I concur with the Shift Assessment completed by the Licensed Practical Nurse today this shift.
[2021-01-16 09:10] VITALS: BP 114/65
--- NOTE | 2021-01-16 09:45 | NUR ---
Pt resting in bed and opens eyes to verbal stimuli. Pt positioned for comfort, call light in reach, bed in low position. Assessment per flow sheet and the Pt did not eat anything this AM.
--- NOTE | 2021-01-16 13:23 | NUR ---
Pt resting in bed and was repositioned for comfort, call light in reach, bed in low position, no distress noted.
--- NOTE | 2021-01-16 18:43 | NUR ---
PATIENT RESTLESS AND MOANING OUT. HEART RATE 115. ATIVAN GIVEN PER ORDERS. BUCKET TURNER CONTINUOUS AT 0.5MG/HR. ORDERS ARE FOR 1MG/HR. RATE CHANGED ON BUCKET TURNER.
[2021-01-16 19:18] VITALS: BP 97/56
--- NOTE | 2021-01-16 19:30 | NUR ---
PT IN BED, EYES CLOSED, RESP SHALLOW AND UNLABORED, NO DISTRESS NOTED, CL IN REACH, SR UP X 2.
--- NOTE | 2021-01-17 03:18 | NUR ---
I have reviewed this patient and I concur with the Shift Assessment completed by the Licensed Practical Nurse today this shift.
[2021-01-17 07:49] VITALS: BP 104/62
[2021-01-17 11:55] VITALS: BP 100/62
[2021-01-17 15:46] VITALS: BP 104/62
--- NOTE | 2021-01-17 17:15 | NUR ---
WALKED IN PATIENTS ROOM TO CHECK ON HER AND OXYGEN SATURATION WAS 50% AND HEART RATE WAS IN THE 50S. STAYED WITH HER AND PRAYED WITH HER AND WITHIN A FEW MINUTES SHE TOOK HER LAST BREATH. UPON WALKING TO DESK FAMILY WAS ON THE PHONE TO CHECK ON HER SO I NOTIFIED THEM OF PASSING AND THEY ASK TO COME AND SEE HER AND THEN I NOTIFIED HOSPICE OF PASSING.
--- NOTE | 2021-01-17 18:15 | NUR ---
HOSPICE HERE AND PATIENT PRONOUNCE, FAMILY ARRIVED AND IN ROOM WITH PATIENT.
--- NOTE | 2021-01-17 18:30 | NUR ---
TRUDY RULED OUT. [id number]
--- NOTE | 2021-01-17 18:36 | NUR ---
HOSPICE CALLED [facility] [place] IN [place].
== END 2021-01-17 20:01 | DRG 951 ==
LOC: D.M2 16:51
PROVIDERS: ADMIT Legal Medicine; ATTEND Legal Medicine
DX: Z51.5 Encounter for palliative care (principal)